=== PATIENT | female | born 1970 ===

== ENCOUNTER 2018-01-03 07:11 | Day surgery (SDC) | payer OTHER ==
[2015-07-26 08:38] VITALS: BMI 27.4
[2018-01-03] MEDS ORDERED: Lactated Ringer's 1,000 ML IV ONE (07:38)
[2018-01-03 08:02] VITALS: TEMP 97.6
[2018-01-03] MEDS ORDERED: Propofol 10 mg/ml Inj (20 ML) ONE (09:23)
[2018-01-03] MEDS ORDERED: Lidocaine 2% MPF (5 ml) Inj ONE (09:23)
[2018-01-03 10:01] VITALS: BP 109/78; PULSE 54; RESP 16; O2SAT 100
== END 2018-01-03 10:11 | disposition home or self-care (01) ==
LOC: H.ENDO 07:11
PROVIDERS: ATTEND Internal Medicine Gastroenterology
DX: K92.1 Melena (principal); K64.8 Other hemorrhoids
CPT/HCPCS: 45380; 88305; J2704; J7120